=== PATIENT | female | born 1960 | race Two or more races ===

== ENCOUNTER 2019-07-26 08:09 | Emergency (ER) | payer MEDICAID ==
[~2019-07-26] VITALS: Ht 144.8 cm; Wt 94.8 kg
[~2019-07-26 08:09] MED LIST: CELEXA
[2019-07-26 08:10] VITALS: BP 145/79
== END 2019-07-26 08:45 | disposition home or self-care (01) ==
LOC: ER 08:09 → MERGE 08:09 → ER 08:45
DX: S00.03XA Contusion of scalp, initial encounter (principal); W01.0XXA Fall on same level from slipping, tripping and stumbling without subsequent striking against object, initial encounter; Y93.89 Activity, other specified; Y92.89 Other specified places as the place of occurrence of the external cause; Y99.8 Other external cause status
CPT/HCPCS: 70450

== ENCOUNTER → 2020-02-27 | Emergency (ER) | payer MEDICAID ==
[~2020-02-27] VITALS: Ht 144.8 cm; Wt 95.3 kg
[2020-02-27 08:36] VITALS: BP 143/86
== END | disposition home or self-care (01) ==
LOC: ER 07:57
DX: R10.2 Pelvic and perineal pain (principal); N83.202 Unspecified ovarian cyst, left side; Z90.49 Acquired absence of other specified parts of digestive tract